=== PATIENT | male | born 1990 | race Caucasian/White ===

== ENCOUNTER 2020-09-09 04:29 | Emergency (ER) | payer OTHER, SELFPAY ==
--- NOTE | 2020-09-09 04:41 | ED.GENADULT ---
HPI - General Adult General Stated complaint: Cut right hand 4th digit Time Seen by Provider: 09/09/20 04:31 Source: patient Mode of arrival: Ambulatory Limitations: no limitations History of Present Illness HPI narrative: Patient is a 30-year-old otherwise healthy male who is up-to-date on his immunizations who is here for evaluation of a cut to the back of his right hand. 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 He clean the area out with soap and water. He placed some topical antibiotic ointment on the area. Placed butterfly bandages and new skin over the area. He states they took anti-inflammatories. When he woke up this morning and does some swelling around the area so he came in for evaluation. Review of Systems Constitutional Constitutional: Denies headache(s) ENT Ears, Nose, Mouth, and Throat: Denies headache(s) Musculoskeletal Musculoskeletal: Denies tingling Comments: Cut to the back of right hand Integumentary/Breasts Comments: Cut to the back of the right hand Neurologic Neurologic: Denies headache(s) and Denies tingling Hematologic/Lymphatic On Anticoagulants: No Patient History Medical History Healthy adult Social History lives independently: Yes Exam Const General: cooperative and comfortable Cardio Pulses: radial pulses present on the right Skin Other: Has a 2 cm laceration just proximal to the MCP joint of the right hand. Dorsal aspect. At the base of the ring finger. There is no active bleeding. No surrounding erythema. Does have some swelling around the area. The butterfly bandages are still in place. Extrem Other: Patient able to flex and extend at the MCP DI P and PIP joints both active and passive in combination and when isolated. Medical Decision Making MDM Narrative Medical decision making narrative: He is up-to-date on his tetanus. He is neurovascularly intact. I have low suspicion for tendon injury given his exam as he can flex and extend at all joints of the right ring finger both active and passive. The skin is very well closed given his interventions at home last evening. I feel that taking the butterfly bandages off and suturing the area would not improve the cut in any way. Decision be is to leave them in place. I did inform him that without taking the bandages off in evaluating for a tendon injury would not be 100% sure however he seems to have both flexion-extension all the joints of his index finger without any problems so I do have low suspicion for tendon injury. He is a remote pilot operator. He was informed that he needed to talk with his flight surgeon before going on any flights today. He was given care instructions and return precautions. He expressed understanding and agreement. Discharge Plan Departure Patient Disposition: Home Clinical Impression: Laceration Activity Restrictions/Additional Instructions: I would recommend that you leave the bandages that you placed last evening on until they come off on their own. You can wash your hand like normal however would not recommend that you soak your hand in any liquid until the wound is healed. You can place ice over the area. This will help with some of the swelling. You do need to talk with your flight surgeon about your flight today. Return to the emergency department for any new or worsening symptoms
[2020-09-09 04:44] VITALS: BP 137/95; PULSE 76; RESP 16; TEMP 36.6; O2SAT 100; BMI 23.0
== END 2020-09-09 04:57 | disposition home or self-care (01) ==
PROVIDERS: Emergency Provider Emergency Medicine
DX: S61.411A Laceration without foreign body of right hand, initial encounter (principal); W26.0XXA Contact with knife, initial encounter
CPT/HCPCS: 99281; 99282